=== PATIENT | female | born 1970 | race Caucasian/White ===

== ENCOUNTER → 2018-06-09 13:00 | Outpatient (CLI) | payer OTHER, SELFPAY | DX: Z23 Encounter for immunization (principal) | CPT/HCPCS: 90471; 90686 ==

== ENCOUNTER → 2019-01-15 13:01 | Outpatient (CLI) | payer OTHER, SELFPAY ==
--- NOTE | 2019-01-15 | DI.US.S_ITS ---
PROCEDURE: US PERIPH VENOUS LOW EXTREM RT INDICATIONS: RIGHT LEG PAIN TECHNIQUE: Real-time imaging, as well as color and pulse Doppler interrogation, were performed of the lower extremity deep veins from the inguinal ligament to the popliteal fossa. COMPARISON: None. FINDINGS: The common femoral, femoral and popliteal veins are normally compressible, and free of intraluminal thrombus. Color and pulse Doppler demonstrate normal phasic intraluminal flow. There is normal augmentation response to distal compression maneuver. A prominent Weems's cyst is evident. If there is clinical concern for internal derangement, please consider MRI of the knee for further evaluation. IMPRESSION: No evidence of right lower extremity deep vein thrombosis. Dictated by: Jarad Malin M.D. on 01/15/2019 at 12:34 Approved by: Jarad Malin M.D. on 01/15/2019 at 12:36
== END ==
PROVIDERS: Visit Provider Family Medicine
DX: M79.604 Pain in right leg (principal)
CPT/HCPCS: 93971

== ENCOUNTER → 2019-01-22 12:07 | Outpatient (CLI) | payer OTHER, SELFPAY ==
--- NOTE | 2019-01-22 | DI.MRI.S_ITS ---
PROCEDURE: MR ANKLE RT WO CON INDICATIONS: Tarsal tunnel syndrome, right lower limb TECHNIQUE: Noncontrast sagittal T1 spin echo and T2 fast spin echo with fat saturation, axial proton density fast spin echo and T2 fast spin echo with fat saturation, coronal T1 spin echo and T2 fast spin echo with fat saturation through the ankle/hindfoot. COMPARISON: None. FINDINGS: Image quality: Excellent. Bones and joints: No bone marrow contusions or fractures. No hindfoot coalitions. No osteochondral injuries of the talar dome. Medial structures: The posterior tibialis, flexor digitorum longus, and flexor hallucis longus tendons are intact, however there is posterior tibialis tenosynovitis. There is also a complex multiloculated fluid collection seen between the flexor digitorum longus and flexor hallux longus tendons on image 17 series 4. This measures approximately 1.9 x 1.0 cm across estimates on axial image 18 series 4 an approximately 1.7 cm in the cephalocaudad dimension. This could represent synovial or ganglion cyst, versus loculated tenosynovitis fluid This closely abuts and possibly impinges the posterior tibial neurovascular bundle. There is a curvilinear structure, possibly enlarged posterior tibial nerve, and medial and lateral plantar nerves, seen on image 5 series 3 (versus flexor digitorum accessorius longus muscle) Additional posterolateral cyst or tibiotalar joint fluid seen on image 18 series 4, image 10 series 6. The deep layer (anterior and posterior tibiotalar ligaments) and superficial layer (tibionavicular, tibiospring, and tibiocalcaneal ligaments) of the deltoid ligament appear normal. The spring ligament components (superomedial calcaneonavicular, medioplantar oblique calcaneonavicular, and inferoplantar longitudinal ligaments) are intact. Lateral structures: The anterior talofibular, calcaneofibular, and posterior talofibular ligaments appear intact. More superiorly, the anterior and posterior tibiofibular ligaments appear intact, as is the intermalleolar ligament. The tibiofibular syndesmosis is normal in width at 2 mm or less. The peroneus longus is intact. There is peroneus brevis tendinopathy and longitudinal split tear. Adjacent bony peroneal tubercle and retrotrochlear prominence are normal in size. The sinus tarsi demonstrates normal fatty signal, without edema, fibrosis, or cyst formation. Visualized sinus tarsi components (cervical ligament, interosseous talocalcaneal ligament, roots of the inferior extensor retinaculum) appear normal. The calcaneonavicular and calcaneocuboid components of the bifurcate ligament appear intact. The dorsal calcaneocuboid ligament appears intact. Anterior structures: The tibialis anterior, extensor hallucis longus, and extensor digitorum longus tendons appear intact. The dorsal talonavicular ligament appears intact. Posterior and plantar structures: Achilles tendon is intact. Medial and lateral bands of the plantar fascia are of normal thickness. No abductor digiti quinti muscle atrophy to suggest Smith neuropathy. IMPRESSION: Prominent cystic appearing fluid collection seen in the posteromedial region of the ankle, probably synovial or ganglion cyst, potentially loculated fluid from tenosynovitis. This is suspicious for posteromedial impingement syndrome recommend clinical correlation. Possible enlargement of the posterior tibial, medial/lateral plantar nerves raises the possibility of neuropathy although recommend clinical correlation. Additional ganglion or synovial cyst versus loculated tibiotalar joint fluid along the posterolateral aspect of the ankle. Peroneal brevis longitudinal split tear and tendinopathy. Posterior tibialis tenosynovitis. Dictated by: Regis Hampton M.D. on 01/22/2019 at 13:42 Approved by: Regis Hampton M.D. on 01/22/2019 at 14:08
== END ==
PROVIDERS: PCP Family Medicine; Visit Provider Podiatrist
DX: G57.51 Tarsal tunnel syndrome, right lower limb (principal); M65.871 Other synovitis and tenosynovitis, right ankle and foot
CPT/HCPCS: 73721

== ENCOUNTER → 2019-02-18 12:11 | Outpatient (CLI) | payer OTHER, SELFPAY ==
--- NOTE | 2019-02-18 | DI.MG.S_ITS ---
BILATERAL DIGITAL SCREENING MAMMOGRAM 3D/2D WITH CAD: 02/18/2019 CLINICAL: Routine screening. Family history of breast cancer. Comparison is made to exams dated: 04/17/2017 mammogram, 08/10/2015 breast MRI, 01/11/2015 mammogram, and 02/04/2014 mammogram - [facility]. There are scattered fibroglandular elements in both breasts. Current study was also evaluated with a Computer Aided Detection (CAD) system. No significant masses, calcifications, or other findings are seen in either breast. There has been no significant interval change. IMPRESSION: NEGATIVE There is no mammographic evidence of malignancy. A 1 year screening mammogram is recommended. This exam was interpreted at Station ID: [id number]. NOTE: For mammograms, a report in lay terms will be sent to the patient. Approximately 15% of breast malignancies will not be visualized mammographically. In the management of a palpable breast mass, a negative mammogram must not discourage biopsy of a clinically suspicious lesion. Electronically Signed By: Regan castellon/claire:02/18/2019 12:57:33 letter sent: Normal Exam ACR BI-RADS Category 1: Negative 3341F
== END ==
PROVIDERS: PCP Family Medicine; Visit Provider Family Medicine
DX: Z12.31 Encounter for screening mammogram for malignant neoplasm of breast (principal); Z80.3 Family history of malignant neoplasm of breast
CPT/HCPCS: 77063; 77067

== ENCOUNTER → 2019-02-24 07:42 | Outpatient (CLI) | payer OTHER, SELFPAY ==
[2019-02-24 08:35] LABS: Add Manual Diff / Slide Review NO; Basophils Absolute Auto 100 /uL (0-100); Basophils Percent Auto 0.6 % (0-2); Eosinophils Absolute Auto 200 /uL (0-450); Eosinophils Percent Auto 1.9 % (2-4); Hematocrit 41.5 % (36-46); Hemoglobin 14.3 g/dL (12.0-16.0); Lymphocytes Absolute Auto 1800 /uL (1100-4500); Lymphocytes Percent Auto 20.7 % (25-40); Mean Corpuscular HGB Conc 34.4 % (30-36); Mean Corpuscular Hemoglobin 33.6 PG (26-34); Mean Corpuscular Volume 97.7 fL (80-100); Monocytes Absolute Auto 600 /uL (0-900); Monocytes Percent Auto 7.1 % (3-14); Neutrophils Absolute Auto 6000 /uL (1500-7000); Neutrophils Percent Auto 69.7 % (50-75); Platelet Count 252 X10^3/uL (150-400); Red Blood Cell Count 4.25 X10^6/uL (4.0-5.2); Red Cell Distribution Width 13.1 % (11.6-14.8); White Blood Cell Count 8.6 X10^3/uL (4.5-11.0)
[2019-02-24 08:43] LABS: Alanine Aminotransferase 37 IU/L (9-52); Albumin 4.7 g/dL (3.5-5.0); Albumin Globulin Ratio 1.3 (1.0-2.8); Alkaline Phosphatase 77 U/L (38-126); Aspartate Aminotransferase 32 IU/L (14-36); BUN Creatinine Ratio 13.8 (6-22); Bilirubin Total 0.4 mg/dL (0.2-1.3); Blood Urea Nitrogen 11 mg/dL (7-17); Calcium 10.1 mg/dL (8.4-10.2); Carbon Dioxide 27 mmol/L (22-32); Chloride 103 mmol/L (98-107); Cholesterol 196 mg/dL (140-199); Estimated Glomerular Filt Rate > 60.0 mL/min (>60); Globulin 3.5 g/dL (1.7-4.1); Glucose 105 mg/dL (70-100); HDL Cholesterol 60 mg/dL (40-60); HEMOLYSIS < 15 (0-50); LDL Cholesterol Calculated 95 mg/dL (<100); Potassium 4.4 mmol/L (3.4-5.1); Sodium 140 mmol/L (137-145); Total Protein 8.2 g/dL (6.3-8.2); Triglycerides 205 mg/dL (35-150)
== END ==
PROVIDERS: PCP Family Medicine; Visit Provider Family Medicine
DX: Z00.00 Encounter for general adult medical examination without abnormal findings (principal); E03.9 Hypothyroidism, unspecified
CPT/HCPCS: 36415; 80053; 80061; 84443; 85025

== ENCOUNTER → 2019-02-25 10:34 | Outpatient (CLI) | payer OTHER, SELFPAY ==
--- NOTE | 2019-02-25 | DI.RAD.S_ITS ---
PROCEDURE: FL ANKLE INJECTION MR/CT RT INDICATIONS: TARSAL TUNNEL SYNDROME TECHNIQUE: After informed consent had been obtained, the ankle was examined fluoroscopically in the lateral projection, and a site for needle placement chosen for entry into the tibiotalar joint from an anterior approach. Care was taken to locate the dorsalis pedis artery beforehand. The skin was prepped and draped in a sterile fashion, and 1% Xylocaine infiltrated from skin down to joint capsule. A hypodermic needle was inserted into the joint, and a small amount of iodinated contrast media injected to confirm intra-articular placement of the needle tip. This was followed by approximately 5 mL dilute solution of a gadolinium containing MR contrast agent. The needle was removed and a dressing was applied. The patient was given postprocedural instructions and sent to the MR suite for MR imaging. The attending radiologist was present during invasive portions of the procedure, and performed all intra-articular injections. FINDINGS: A single fluoroscopic spot image demonstrates intra-articular location of injected iodinated contrast. IMPRESSION: Successful fluoroscopically guided administration of dilute Gadolinium solution into the tibiotalar joint for MR arthrogram. Dictated by: Tyra Bucio M.D. on 02/25/2019 at 12:58 Approved by: Tyra Bucio M.D. on 02/25/2019 at 12:58
--- NOTE | 2019-02-25 | DI.MRI.S_ITS ---
PROCEDURE: MR ANKLE RT W CON INDICATIONS: TARSAL TUNNEL SYNDROME TECHNIQUE: After the administration of 5 mL of dilute intra-articular Gadolinium contrast into the tibiotalar joint, sagittal T1 spin echo with and without fat saturation, axial T1 fast spin echo with fat saturation and T2 fast spin echo with fat saturation, coronal T1 spin echo and T2 fast spin echo with fat saturation through the ankle. COMPARISON: None. FINDINGS: Image quality: Excellent. Bones and joints: No bone marrow contusions or fractures. No hindfoot coalitions. No osteochondral injuries of the talar dome. Small amount of fluid within tibiotalar joint and subtalar joint is seen. No intra-articular bodies. The tibiotalar joint capsule is of normal thickness throughout. Medial structures: The posterior tibialis, flexor digitorum longus, and flexor hallucis longus tendons are intact. There is a 1.5 x 1.2 x 1.5 cm heterogeneously T1 hypointense and T2 hyperintense structure situated within posterior aspect of tarsal tunnel with mass effect on posterior aspect of posterior tibial neurovascular bundle. The deep layer (anterior and posterior tibiotalar ligaments) and superficial layer (tibionavicular, tibiospring, and tibiocalcaneal ligaments) of the deltoid ligament appear normal. The spring ligament components (superomedial calcaneonavicular, medioplantar oblique calcaneonavicular, and inferoplantar longitudinal ligaments) are intact. Lateral structures: The anterior talofibular, calcaneofibular, and posterior talofibular ligaments appear intact. More superiorly, the anterior and posterior tibiofibular ligaments appear intact, as is the intermalleolar ligament. The tibiofibular syndesmosis is normal in width at 2 mm or less. The peroneus longus and brevis tendons demonstrate normal location and morphology. Adjacent bony peroneal tubercle and retrotrochlear prominence are normal in size. The sinus tarsi demonstrates normal fatty signal, without edema, fibrosis, or cyst formation. Visualized sinus tarsi components (cervical ligament, interosseous talocalcaneal ligament, roots of the inferior extensor retinaculum) appear normal. The calcaneonavicular and calcaneocuboid components of the bifurcate ligament appear intact. The dorsal calcaneocuboid ligament appears intact. Anterior structures: The tibialis anterior, extensor hallucis longus, and extensor digitorum longus tendons appear intact. The dorsal talonavicular ligament appears intact. Posterior and plantar structures: Achilles tendon is intact. Medial and lateral bands of the plantar fascia are of normal thickness. No abductor digiti quinti muscle atrophy to suggest Smith neuropathy. IMPRESSION: 1. 1.5 x 1.2 x 1.5 cm cystic structure within the posterior aspect of tarsal tunnel with mass effect on posterior aspect of posterior tibial neurovascular bundle most likely representing ganglion cyst in this region and is consistent with patient's clinical history of tarsal tunnel syndrome. 2. Ankle tendons and ligaments are grossly intact. 3. No marrow edema. No fracture or dislocation. Small joint effusion. No gross loose body. Dictated by: Anton Gonzalez M.D. on 02/25/2019 at 13:25 Approved by: Anton Gonzalez M.D. on 02/26/2019 at 1:08
== END ==
PROVIDERS: PCP Family Medicine; Visit Provider Podiatrist
DX: G57.51 Tarsal tunnel syndrome, right lower limb (principal); M25.471 Effusion, right ankle
CPT/HCPCS: 20605; 73722; 77002

== ENCOUNTER → 2019-06-22 09:29 | Outpatient (CLI) | payer OTHER, SELFPAY | PROVIDERS: PCP Family Medicine | DX: Z23 Encounter for immunization (principal) | CPT/HCPCS: 90471; 90686 ==

== ENCOUNTER 2019-10-22 13:36 | Emergency (ER) | payer OTHER, SELFPAY ==
[2019-10-22 14:02] VITALS: BP 134/91; PULSE 90; RESP 16; TEMP 37.3; O2SAT 99; BMI 32.6
--- NOTE | 2019-10-22 14:35 | ED.GENADULT ---
HPI - General Adult General Chief complaint: Blood/Body fluid exposure Stated complaint: needle stick Time Seen by Provider: 10/22/19 14:02 Source: patient Mode of arrival: Ambulatory Limitations: no limitations History of Present Illness HPI narrative: CC: Surgical needle poke to finger with exposure to patient's body fluids. 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 She does not know whether not she received hepatitis-A vaccine. She she was working in surgery when had the neuro monitoring, EMG solid electrodes 30 gauge poked her in her radial aspect of her left middle finger. The patient was trying to take the tape off the needles when she was poked. She has no other complaints or health problems. She understands the risks. She declined hepatitis-B vaccine. She also declined the antiviral medications for HIV. She will follow-up with [facility] health. Related Data Home Medications Medication Instructions Recorded Confirmed LEVOTHYROXINE SODIUM 200 mcg #0 05/26/13 Allergies Allergy/AdvReac Type Severity Reaction Status Date / Time Sulfa (Sulfonamide Allergy Mild FACE Unverified 12/31/17 11:52 Antibiotics) SWELLED bupropion Allergy Unknown Unverified 12/31/17 11:52 Review of Systems Review of Systems ROS Unobtainable: All systems reviewed & are unremarkable except as noted in HPI and below Patient History Surgical History History of third molar tooth extraction History of tonsillectomy Status post delivery (08/10/93) Status post delivery Status post endometrial ablation Social History Smoking Status: Never smoker Smoking Status: Never smoker alcohol intake frequency: a few times a week Substance Use Type: does not use Exam Narrative Exam Narrative: PHYSICAL EXAM: CONSTITUTIONAL: Awake, Alert, Oriented, Coherent, Cooperative in NAD. Does not appear toxic or ill. HEAD: AT/NC LUNGS: Clear with symmetrical breath sounds without respiratory distress HEART: Normal heart tones, regular rhythm and rate without murmur. EXTREMITIES: The patient has a punctate puncture wound over the radial aspect of the left middle finger. It is not actively bleeding. However when the bandage was removed there was evidence that it had been bleeding. She has full range of motion of her fingers to flexion extension abduction adduction and good capillary refill. SKIN: No rash, bruising, petechiae or purpura over the left hand. NEURO: Awake, alert, oriented, conversive, no focal facial asymmetry, moves all 4 extremities and is ambulatory Initial Vital Signs Initial Vital Signs: Vital Signs Temperature 99.2 F 10/22/19 14:02 Pulse Rate 90 10/22/19 14:02 Respiratory Rate 16 10/22/19 14:02 Blood Pressure 134/91 H 10/22/19 14:02 Pulse Oximetry 99 10/22/19 14:02 Course Course Course Narrative: As previously mentioned we discussed the risks. However, it is not without risk. The patient read the information on the antiviral medications and declines the medication. As result of her hepatitis-B vaccination she declines being revaccinated. Hepatitis-B surface antibody has been drawn on her and the blood tests for unknown HIV status on the sores have been drawn on the the patient. She was advised to follow-up with employee health to get the results. Orders Ordered: ED Orders 10/22/19 14:37 Alanine Aminotransferase Stat HIV 1 & 2 Ab/Ag 4th Gen Combo Stat Hepatitis C Virus Antibody Stat Vital Signs Vital signs: Vital Signs - 8 hr 10/22/19 14:02 Temperature 99.2 F Pulse Rate 90 Respiratory Rate 16 Blood Pressure 134/91 H Pulse Oximetry 99 Medical Decision Making Lab Data Labs: Lab Results 10/22/19 10/22/19 Range/Units 14:37 14:37 ALT 30 (<35) IU/L Hepatitis C Antibody Negative (NEGATIVE) s/c HIV 1&2 Ab/P24 Ag 4thGn Negative (NEGATIVE) Discharge Plan Departure Patient Disposition: Home Clinical Impression: Employee exposure to body fluids Discharge Date/Time: 10/22/19 15:15 Instructions: DI for Accidental Exposure to Body Fluids Activity Restrictions/Additional Instructions: As we discussed follow-up with employee health. If the area of needle poke becomes inflamed you need to follow up with employee health. If you develop fever chills or sweats any other complications you can return to the emergency department. Normal wound care wash it in running water and soap rinse well, pad dry and cover with bandage. If it becomes infected follow-up with employee health or return to the emergency department. Her pain and discomfort use either Tylenol or ibuprofen. Prescriptions: No Action LEVOTHYROXINE SODIUM 200 mcg Qty: 0 RF: 0 Referrals: Юлия Ellis DO [Primary Care Provider] -
[2019-10-22 15:01] LABS: Alanine Aminotransferase 30 IU/L (<35)
[2019-10-22 16:05] LABS: HIV 1 & 2 Ab/Ag 4th Gen Combo NEGATIVE (NEGATIVE); Hep C Virus Ab w/Reflex Quant NEGATIVE s/c (NEGATIVE)
[2019-10-26 15:31] LABS: Hepatitis B Surf Ab Qualitativ Nonreactive (Nonreactive)
== END 2019-10-22 15:15 | disposition home or self-care (01) ==
PROVIDERS: Emergency Provider Emergency Medicine; PCP Family Medicine
DX: Z77.21 Contact with and (suspected) exposure to potentially hazardous body fluids (principal); Y99.0 Civilian activity done for income or pay
CPT/HCPCS: 36415; 84460; 86706; 86803; 87389; 99283

== ENCOUNTER → 2019-12-01 06:29 | Outpatient (CLI) | payer OTHER, SELFPAY ==
--- NOTE | 2019-12-01 | DI.MRI.S_ITS ---
PROCEDURE: MR ANKLE RT WO CON INDICATIONS: Ganglion, right ankle and foot TECHNIQUE: Noncontrast sagittal T1 spin echo and T2 fast spin echo with fat saturation, axial proton density fast spin echo and T2 fast spin echo with fat saturation, coronal T1 spin echo and T2 fast spin echo with fat saturation through the ankle/hindfoot. COMPARISON: [facility], MR, MR ANKLE RT WO CON, 01/22/2019, 12:11. FINDINGS: Image quality: Excellent. Bones and joints: No bone marrow contusions or fractures. No hindfoot coalitions. No osteochondral injuries of the talar dome. Small amount of tibiotalar joint fluid is seen. Medial structures: The posterior tibialis, flexor digitorum longus, and flexor hallucis longus tendons are intact. Low-grade tenosynovitis involving posterior tibialis tendon and flexor hallucis longus tendon is seen. Septated cystic structure is noted situated in medial ankle soft tissue between the flexor digitorum and longus and flexor hallucis longus tendon with mass effect on the adjacent tendon measures up to 1.6 x 2.1 x 1.9 cm in size. There is suggestion of mass effect on the adjacent posterior tibial neurovascular bundle The deep layer (anterior and posterior tibiotalar ligaments) and superficial layer (tibionavicular, tibiospring, and tibiocalcaneal ligaments) of the deltoid ligament appear normal. The spring ligament components (superomedial calcaneonavicular, medioplantar oblique calcaneonavicular, and inferoplantar longitudinal ligaments) are intact. Lateral structures: The anterior talofibular, calcaneofibular, and posterior talofibular ligaments appear intact. More superiorly, the anterior and posterior tibiofibular ligaments appear intact, as is the intermalleolar ligament. The tibiofibular syndesmosis is normal in width at 2 mm or less. The peroneus longus and brevis tendons demonstrate normal location and morphology. Adjacent bony peroneal tubercle and retrotrochlear prominence are normal in size. The sinus tarsi demonstrates normal fatty signal, without edema, fibrosis, or cyst formation. Visualized sinus tarsi components (cervical ligament, interosseous talocalcaneal ligament, roots of the inferior extensor retinaculum) appear normal. The calcaneonavicular and calcaneocuboid components of the bifurcate ligament appear intact. The dorsal calcaneocuboid ligament appears intact. Possible joint effusion versus elongated ganglion cyst in posterior lateral ankle joint at the level of subtalar joint is seen measures 2.1 x 0.7 x 1.8 cm in size. Anterior structures: The tibialis anterior, extensor hallucis longus, and extensor digitorum longus tendons appear intact. The dorsal talonavicular ligament appears intact. Posterior and plantar structures: Achilles tendon is intact. Medial and lateral bands of the plantar fascia are of normal thickness. No abductor digiti quinti muscle atrophy to suggest Smith neuropathy. IMPRESSION: 1. Finding is suggestive of a septated 1.6 x 2.1 x 1.9 cm ganglion cyst situated between the flexor hallucis longus tendon and flexor digitorum longus tendon with mass effect on the adjacent tendons and possibly on the adjacent posterior tibial neurovascular bundle. 2. Possible additional cyst versus tibiotalar joint fluid in posterior lateral ankle joint as above. 3. Low-grade tenosynovitis involving flexor tendons as above. Dictated by: Anton Gonzalez M.D. on 12/01/2019 at 8:50 Approved by: Anton Gonzalez M.D. on 12/01/2019 at 8:59
== END ==
PROVIDERS: PCP Family Medicine; Referring Provider Podiatrist Foot & Ankle Surgery; Visit Provider Podiatrist Foot & Ankle Surgery
DX: M67.471 Ganglion, right ankle and foot (principal); M65.871 Other synovitis and tenosynovitis, right ankle and foot
CPT/HCPCS: 73721

== ENCOUNTER → 2019-12-02 11:11 | Outpatient (CLI) | payer OTHER, SELFPAY ==
[2019-12-02 11:50] LABS: Hematocrit 43.3 % (36-46); Hemoglobin 14.6 g/dL (12.0-16.0); Mean Corpuscular HGB Conc 33.7 % (30-36); Mean Corpuscular Hemoglobin 34.2 PG (26-34); Mean Corpuscular Volume 101.7 fL (80-100); Platelet Count 229 X10^3/uL (150-400); Red Blood Cell Count 4.26 X10^6/uL (4.0-5.2); Red Cell Distribution Width 14.8 % (11.6-14.8)
[2019-12-02 12:19] LABS: BUN Creatinine Ratio 12.6 (6-22); Blood Urea Nitrogen 11 mg/dL (7-17); Calcium 9.6 mg/dL (8.4-10.2); Carbon Dioxide 29 mmol/L (22-32); Chloride 105 mmol/L (98-107); Estimated Glomerular Filt Rate > 60.0 mL/min (>60); Glucose 93 mg/dL (70-100); HEMOLYSIS < 15 (0-50); Potassium 3.8 mmol/L (3.4-5.1); Sodium 140 mmol/L (137-145)
== END ==
PROVIDERS: Podiatrist Foot & Ankle Surgery; PCP Family Medicine; Referring Provider Family Medicine; Visit Provider Family Medicine
DX: M67.471 Ganglion, right ankle and foot (principal); M25.771 Osteophyte, right ankle
CPT/HCPCS: 36415; 80048; 85027

== ENCOUNTER → 2020-03-20 09:00 | Outpatient (CLI) | payer OTHER, SELFPAY ==
--- NOTE | 2020-03-20 | DI.MG.S_ITS ---
BILATERAL DIGITAL SCREENING MAMMOGRAM 3D/2D WITH CAD: 03/20/2020 CLINICAL: Routine screening. Family history of breast cancer. Comparison is made to exams dated: 02/18/2019 mammogram, 04/17/2017 mammogram, and 01/11/2015 mammogram - [facility]. There are scattered fibroglandular elements in both breasts. Current study was also evaluated with a Computer Aided Detection (CAD) system. No significant masses, calcifications, or other findings are seen in either breast. There has been no significant interval change. IMPRESSION: NEGATIVE There is no mammographic evidence of malignancy. A 1 year screening mammogram is recommended. This exam was interpreted at Station ID: [id number]. NOTE: For mammograms, a report in lay terms will be sent to the patient. Approximately 15% of breast malignancies will not be visualized mammographically. In the management of a palpable breast mass, a negative mammogram must not discourage biopsy of a clinically suspicious lesion. Electronically Signed By: Miles isbell/claire:03/20/2020 10:06:46 letter sent: Normal Exam ACR BI-RADS Category 1: Negative [id number]
== END ==
PROVIDERS: PCP Family Medicine; Referring Provider Family Medicine; Visit Provider Family Medicine
DX: Z12.31 Encounter for screening mammogram for malignant neoplasm of breast (principal); Z80.3 Family history of malignant neoplasm of breast
CPT/HCPCS: 77063; 77067